=== PATIENT | male | born 1980 | race Caucasian/White ===

== ENCOUNTER 2019-07-02 18:25 | Emergency (ER) | payer MEDICAID ==
[~2019-07-02] VITALS: Ht 180.3 cm; Wt 75.0 kg
[2019-07-02 18:47] VITALS: Ht 180.3 cm; Wt 75.0 kg
[2019-07-02 19:34] LABS: BASOPHILS 0.5 % (0-2); EOSINOPHILS 3.8 % (0-7); HEMATOCRIT 46.7 % (42.0-54.0); HEMOGLOBIN 16.6 g/dL (13.5-17.5); IMMATURE GRANULOCYTES 0.3 % (0-5); LYMPHOCYTES 37.3 % (15-50); MCH 36.2 pg (26.0-34.0); MCHC 35.5 g/dL (31.0-37.0); MCV 101.7 fL (80.0-100.0); MEAN PLATELET VOLUME 10.2 fL (7.4-10.4); MONOCYTES 9.5 % (2-11); NEUTROPHILS 48.6 % (40-80); PLATELET COUNT 259 10x3/uL (130-400); RBC 4.59 10x6/uL (4.20-6.10); RDW 12.1 % (11.5-14.5); WBC 6.6 10x3/uL (4.8-10.8)
[2019-07-02 19:43] LABS: INR 1.07 (0.85-1.17); PROTIME 13.4 SECONDS (11.6-15.0)
[2019-07-02 19:48] LABS: CALC OSMOLALITY 283 mosm/kg (275-300); CALCIUM 9.3 mg/dL (8.5-10.1); CARBON DIOXIDE 29.5 mmol/L (21.0-32.0); CHLORIDE - SERUM 104 mmol/L (98-107); GLUCOSE 105 mg/dL (74-106); POTASSIUM - SERUM 4.1 mmol/L (3.5-5.1); SODIUM 143 mmol/L (136-145); UREA NITROGEN 10 mg/dL (7-18); eGFR NON AFRICAN AMERICAN 89 mL/min (90-120)
[2019-07-02 19:54] LABS: ALBUMIN 4.2 g/dL (3.4-5.0); ALKALINE PHOSPHATASE 77 U/L (46-116); ALT (SGPT) 70 U/L (10-68); BILIRUBIN - TOTAL 0.37 mg/dL (0.2-1.3); PROTEIN - SERUM 7.9 g/dL (6.4-8.2)
[2019-07-02 22:03] LABS: APPEARANCE CLEAR (CLEAR); BILIRUBIN NEGATIVE (NEGATIVE); COLOR YELLOW (YELLOW); GLUCOSE NEGATIVE (NEGATIVE); KETONE NEGATIVE (NEGATIVE); NITRITE NEGATIVE (NEGATIVE); PROTEIN NEGATIVE (NEGATIVE); SPECIFIC GRAVITY 1.015 (1.005-1.020); UROBILINOGEN NORMAL (NORMAL)
[2019-07-02 22:09] LABS: AMYLASE - SERUM 23 U/L (25-115); LIPASE 223 U/L (73-393)
[2019-07-02 22:10] LABS: TROPONIN-I < 0.017 ng/mL (0.000-0.060)
[2019-07-03] MEDS ORDERED: ACETAMINOPHEN500 M1 PO (02:09)
[2019-07-03] MEDS ORDERED: CYCLOBENZAPRINE10 MG PO (02:09)
[2019-07-03] MEDS ORDERED: IBUPROFEN800 MG PO (02:09)
[2019-07-03 02:24] VITALS: BP 107/61
== END 2019-07-03 02:24 | disposition home or self-care (01) ==
LOC: D.ER 18:25
PROVIDERS: Family Medicine
DX: M54.41 Lumbago with sciatica, right side (principal); R15.9 Full incontinence of feces; R20.0 Anesthesia of skin; R20.2 Paresthesia of skin; G89.29 Other chronic pain